=== PATIENT | male | born 1960 | race Caucasian/White ===

== ENCOUNTER → 2020-11-05 11:03 | Outpatient (BNVA) | payer OTHER, SELFPAY | PROVIDERS: Visit Provider Internal Medicine Rheumatology | DX: M05.79 Rheumatoid arthritis with rheumatoid factor of multiple sites without organ or systems involvement (principal); Z79.899 Other long term (current) drug therapy; Z96.621 Presence of right artificial elbow joint; Z71.89 Other specified counseling; Z87.891 Personal history of nicotine dependence | CPT/HCPCS: 99204 ==

== ENCOUNTER → 2021-03-02 13:31 | Outpatient (BNVA) | payer OTHER, SELFPAY | PROVIDERS: PCP Clinical Nurse Specialist Adult Health; Visit Provider Internal Medicine Rheumatology | DX: M05.79 Rheumatoid arthritis with rheumatoid factor of multiple sites without organ or systems involvement (principal); Z79.899 Other long term (current) drug therapy; Z96.621 Presence of right artificial elbow joint; Z71.89 Other specified counseling; Z87.891 Personal history of nicotine dependence | CPT/HCPCS: 99214 ==

== ENCOUNTER → 2022-05-20 14:16 | Outpatient (BNVA) | payer BC, SELFPAY | PROVIDERS: Visit Provider Internal Medicine Rheumatology | DX: M05.79 Rheumatoid arthritis with rheumatoid factor of multiple sites without organ or systems involvement (principal); Z79.899 Other long term (current) drug therapy; Z71.89 Other specified counseling; Z96.621 Presence of right artificial elbow joint | CPT/HCPCS: 36415; 80076; 82565; 85025 ==

== ENCOUNTER → 2022-09-23 11:37 | Outpatient (BNVA) | payer MEDICARE, SELFPAY | PROVIDERS: Visit Provider Internal Medicine Rheumatology | DX: M05.79 Rheumatoid arthritis with rheumatoid factor of multiple sites without organ or systems involvement (principal); Z79.899 Other long term (current) drug therapy; Z71.89 Other specified counseling; Z96.621 Presence of right artificial elbow joint | CPT/HCPCS: 99214 ==

== ENCOUNTER → 2023-01-04 13:44 | Outpatient (BNVA) | payer MEDICARE, SELFPAY | PROVIDERS: Visit Provider Internal Medicine Rheumatology | DX: Z79.899 Other long term (current) drug therapy (principal); M05.79 Rheumatoid arthritis with rheumatoid factor of multiple sites without organ or systems involvement; Z71.89 Other specified counseling; Z96.621 Presence of right artificial elbow joint | CPT/HCPCS: 99214 ==

== ENCOUNTER 2023-06-17 09:53 | Outpatient (CLI) | payer MEDICARE, SELFPAY ==
--- NOTE | 2023-06-17 10:10 | MR_ITS ---
WS: [id number] MRI LEFT SHOULDER HISTORY: INJURY OF L SHOULDER COMPARISON: None available. TECHNIQUE: Multiplanar sequences of the shoulder joint are submitted. Severe AC joint arthritis with encroachment upon the supraspinatus tendon. Moderate amount of fluid i n the subacromial and subdeltoid bursa. There is a separate 1.1 x 1.4 cm probable bone fragment adjac ent to the distal clavicle and acromion. Not a typical location for os acromion. Partial subluxation of the biceps tendon. Small amount of increased fluid within the tendon sheath. Large fluid gap in the distal supraspinatus tendon location. There is a complete tear with the tendon retracted to the superior humeral head. There is fraying along the retracted surface of the tendon a nd tendinopathy. Mild supraspinatus muscle atrophy. Marked tendinopathy with tendon thickening involv ing the distal subscapularis tendon. Significant fraying along the surface of the tendon and moderate narrowing of the coracohumeral interval. Infraspinatus tendon tear distally with fluid extending int rasubstance. Complete or near complete tear of the distal tendon without significant retraction. Ther e is significant fraying along the surfaces of the infraspinatus tendon. Humeral head is high riding. Mild narrowing of the glenohumeral joint. Fraying of the labrum. Very sm all tear suspected along the anterior labrum. No significant joint effusion. IMPRESSION: 1. 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 2. Moderate subacromial and subdeltoid bursal distention. 3. Partial subluxation of the biceps tendon from the bicipital groove with tenosynovitis. 4. Torn retracted distal supraspinatus tendon. Tendon retracted to the superior humeral head. 5. Advanced tendinopathy involving the distal subscapularis tendon. 6. Infraspinatus tendon tear distally with intrasubstance extension. Complete or near complete tear. 7. Fraying of the labrum. Small anterior labral tear. 8. Osseous or calcific fragment measuring 1.1 x 1.4 cm near the distal clavicle and acromion. Not a typical location for os acromion. This may be calcific tendinitis versus osteophyte or bone fragment. 9. Mild supraspinatus muscle atrophy.
== END 2023-06-17 09:54 | disposition home or self-care (01) ==
LOC: RAD 09:56
PROVIDERS: Visit Provider Nurse Practitioner Family
DX: S49.92XA Unspecified injury of left shoulder and upper arm, initial encounter (principal); X58.XXXA Exposure to other specified factors, initial encounter
CPT/HCPCS: 73221

== ENCOUNTER → 2023-06-27 11:06 | Outpatient (BNVA) | payer MEDICARE, SELFPAY | PROVIDERS: Referring Provider Nurse Practitioner Family; Visit Provider Specialist | DX: M75.102 Unspecified rotator cuff tear or rupture of left shoulder, not specified as traumatic; M12.812 Other specific arthropathies, not elsewhere classified, left shoulder; S49.92XD Unspecified injury of left shoulder and upper arm, subsequent encounter; X58.XXXD Exposure to other specified factors, subsequent encounter | CPT/HCPCS: 20610; 73030; 99204; J1100; J2795; J3301 ==

== ENCOUNTER → 2023-11-08 12:40 | Outpatient (BNVA) | payer MEDICARE, SELFPAY | PROVIDERS: PCP Nurse Practitioner Family; Visit Provider Internal Medicine Rheumatology | DX: M05.79 Rheumatoid arthritis with rheumatoid factor of multiple sites without organ or systems involvement (principal); Z79.899 Other long term (current) drug therapy; Z71.89 Other specified counseling; Z96.621 Presence of right artificial elbow joint | CPT/HCPCS: 99214 ==

== ENCOUNTER → 2024-05-15 13:39 | Outpatient (BNVA) | payer MEDICARE, SELFPAY | PROVIDERS: PCP Nurse Practitioner Family; Visit Provider Internal Medicine Rheumatology | DX: M05.89 Other rheumatoid arthritis with rheumatoid factor of multiple sites (principal); M05.79 Rheumatoid arthritis with rheumatoid factor of multiple sites without organ or systems involvement; R93.6 Abnormal findings on diagnostic imaging of limbs; M17.0 Bilateral primary osteoarthritis of knee; Z79.899 Other long term (current) drug therapy; Z71.89 Other specified counseling; Z96.621 Presence of right artificial elbow joint | CPT/HCPCS: 20610; 73562; 99214; J1010; J9999 ==

== ENCOUNTER → 2024-10-30 13:04 | Outpatient (BNVA) | payer MEDICARE, SELFPAY | PROVIDERS: PCP Nurse Practitioner Family; Visit Provider Internal Medicine Rheumatology | DX: M05.79 Rheumatoid arthritis with rheumatoid factor of multiple sites without organ or systems involvement (principal); Z79.899 Other long term (current) drug therapy; Z71.85 Encounter for immunization safety counseling; Z96.621 Presence of right artificial elbow joint | CPT/HCPCS: 99214 ==

== ENCOUNTER → 2025-03-11 13:21 | Outpatient (BNVA) | payer MEDICARE, SELFPAY | PROVIDERS: PCP Family Medicine; Visit Provider Internal Medicine Rheumatology | DX: M05.79 Rheumatoid arthritis with rheumatoid factor of multiple sites without organ or systems involvement (principal); Z79.899 Other long term (current) drug therapy; Z71.85 Encounter for immunization safety counseling; Z96.621 Presence of right artificial elbow joint | CPT/HCPCS: 99214 ==